=== PATIENT | female | born 1990 | race Hispanic/Latino ===

== ENCOUNTER → 2017-10-18 | Day surgery (SDC) | payer OTHER ==
[~2017-10-18] VITALS: Ht 160 cm; Wt 71.2 kg
--- NOTE | 2017-10-18 11:27 | Operative Report ---
Operative/Inv Procedure Report Surgery Date: 10/18/17 Name of Procedure: Bilateral breast reduction Pre-Operative Diagnosis: Breast hypertrophy Post-Operative Diagnosis: Same Estimated Blood Loss: scant (200) Surgeon/Lead Caster Helper: Papito Salmeron MD Anesthesia: general endotracheal tube Operative/Procedure Note Note: The patient was counseled in regards to the procedure the alternatives the risks and the expected outcomes as relates to her request for surgical intervention to treat symptomatic macromastia. No guarantees were given in regards to results or changes in symptoms. We talked once again about infection bleeding pain numbness asymmetry possibility of symptomatic or unsightly scars. No guarantees were given in regards to symmetry. We talked about the risks of nipple areolar complex tissue loss or functional loss. Talked about open wounds requiring prolonged wound care and pain numbness and scarring. I asked the patient if she had any questions about the consent form she signed in the office and she stated no. She was marked in the standing position for an inferior pedicle Carmichael pattern technique with the use of a measuring tape. She was then brought to the operating room after signing informed consent. Venodyne boots placed general anesthesia was established and intravenous antibiotics were given. The chest was prepped and draped in usual sterile fashion. De-epithelialization of a 9 cm pedicle was carried out. Sections were removed superiorly laterally medially. 3 layer closure was carried out as well as the nipple areolar complex.
== END ==
LOC: STS 01:25
DX: N62 Hypertrophy of breast (principal)
CPT/HCPCS: 81025; 88305; C9399; J0131; J0690; J2250; Q9968